=== PATIENT | female | born 1975 | race Hispanic/Latino ===

== ENCOUNTER 2017-05-08 22:14 | Emergency (ER) | payer OTHER ==
[2017-05-08 22:15] VITALS: BMI 24.1
[2017-05-08 22:35] VITALS: RESP 18; TEMP 98.4; O2SAT 99
[2017-05-08] MEDS ORDERED: DiphenhydrAMINE 50 mg/ml Inj IVP STA (23:06)
[2017-05-09 00:22] LABS: ADD MANUAL DIFF? NO
[2017-05-09 00:26] LABS: URINE BILIRUBIN NEGATIVE (NEGATIVE); URINE BLOOD NEGATIVE (NEGATIVE); URINE GLUCOSE (UA) NEGATIVE (NEGATIVE); URINE KETONE NEGATIVE (NEGATIVE); URINE LEUKOCYTE ESTERASE NEGATIVE Leu/uL (NEGATIVE); URINE PROTEIN NEGATIVE mg/dL (<30 mg/dL); URINE UROBILINOGEN 0.2 E.U./dL (<1 E.U./dL)
[2017-05-09 00:32] LABS: URINE APPEARANCE CLEAR (CLEAR); URINE COLOR YELLOW (YELLOW)
[2017-05-09 00:34] LABS: BASO # 0.03 K/mm3 (0.0-2.0); BASO % 0.5 % (0.0-3.0); EOS # 0.1 (0.0-0.7); GRAN # 3.95 (1.4-6.5); GRAN % 65.5 % (50.0-68.0); HEMATOCRIT 37.6 % (36.0-48.0); LYMPH # 1.5 (1.2-3.4); LYMPH % 24.9 % (22.0-35.0); MEAN CELL VOLUME 80.7 fL (80.0-105.0); MEAN CORPUSCULAR HEMOGLOBIN 26.6 pg (25.0-35.0); MEAN PLATELET VOLUME 10.4 fl (7.0-11.0); MONO # 0.4 (0.1-0.6); MONO % 7.1 % (1.0-6.0); PLATELET COUNT 346 10^3/uL (120.0-450.0); RED CELL DISTRIBUTION WIDTH 14.8 % (11.5-14.5)
[2017-05-09 00:50] LABS: ALB/GLOB RATIO 1.3 (1.1-1.8); AST/SGOT 29 U/L (15-39); BILIRUBIN,TOTAL 1.1 mg/dL (0.2-1.3); BLOOD UREA NITROGEN 12 mg/dL (7-21); CALCIUM 9.9 mg/dL (8.4-10.5); CARBON DIOXIDE 23 mmol/L (21-33); GFR AFRICAN-AMERICAN > 60; GLUCOSE,RANDOM 89 mg/dL (70-110); TOTAL PROTEIN 7.7 g/dL (5.8-8.3)
[2017-05-09 00:54] LABS: ALKALINE PHOSPHATASE 111 U/L (38-133); ALT/SGPT 23 U/L (7-56); CHLORIDE 104 mmol/L (98-107); POTASSIUM 3.9 mmol/L (3.6-5.0); SODIUM 138 mmol/L (132-148)
--- NOTE | 2017-05-09 02:04 | ED PDOC ---
Arrival/HPI - General Chief Complaint: Dizziness/Lightheaded Time Seen by Provider: 05/08/17 22:45 Historian: Patient - History of Present Illness Narrative History of Present Illness (Text): 05/08/17 22:59 This 41 yo female with pmh vertigo, PINO, presents to this ED c/o headache, dizziness x 1 day. Patient stated she had similar symptoms in the past. Patient denies fever, sob, cp, neck pain, neck stiffness, abdominal pain, urinary symptoms, n/v, or abnormal gait. Time/Duration: Other (see HPI) Context: Home Past Medical History - Provider Review Nursing Documentation Reviewed: Yes - Tetanus Immunization Tetanus Immunization: Unknown - Neurological Other/Comment: Marin's Palsy - Endocrine/Metabolic Hx Hypothyroidism: Yes - Psychiatric Hx Anxiety: Yes Hx Substance Use: No - Surgical History Hx Tonsillectomy: Yes - Anesthesia Hx Anesthesia: Yes Hx Anesthesia Reactions: No Hx Malignant Hyperthermia: No - Suicidal Assessment Feels Threatened In Home Enviroment: No Family/Social History - Physician Review Nursing Documentation Reviewed: Yes Family/Social History: No Known Family HX Smoking Status: Never Smoked Hx Alcohol Use: Yes Hx Substance Use: No Hx Substance Use Treatment: No Allergies/Home Meds Allergies/Adverse Reactions: Allergies iodine Allergy (Verified 05/08/17 22:36) RASH meclizine Allergy (Verified 05/08/17 22:36) SWELLING Review of Systems - Review of Systems Constitutional: Normal. absent: Fatigue, Weight Change, Fevers Eyes: Normal ENT: Normal. absent: Sore Throat, Rhinorrhea Respiratory: Normal. absent: SOB, Cough, Sputum Cardiovascular: Normal. absent: Chest Pain, Palpitations Gastrointestinal: Nausea. absent: Abdominal Pain, Constipation, Diarrhea, Vomiting Genitourinary Female: Normal. absent: Dysuria, Frequency, Hematuria, Vaginal Bleeding, Vaginal Discharge Musculoskeletal: Normal. absent: Arthralgias, Back Pain, Neck Pain, Joint Swelling, Myalgias Skin: Normal. absent: Rash Neurological: Headache, Dizziness. absent: Focal Weakness, Gait Changes, Speech Changes, Facial Droop, Disequilibrium, Seizure Endocrine: Normal Hemo/Lymphatic: Normal Psychiatric: Normal Physical Exam Vital Signs Temp Pulse Resp BP Pulse Ox 05/09/17 02:15 98.4 F 75 18 126/76 99 05/09/17 00:15 90 18 126/77 98 05/08/17 22:31 98.4 F 124 H 18 128/74 99 Temperature: Afebrile Blood Pressure: Normal Pulse: Tachycardic Respiratory Rate: Normal Appearance: Positive for: Well-Appearing, Non-Toxic, Comfortable Pain Distress: None Mental Status: Positive for: Alert and Oriented X 3 - Systems Exam Head: Present: Atraumatic, Normocephalic Pupils: Present: PERRL Extroacular Muscles: Present: EOMI Conjunctiva: Present: Normal Mouth: Present: Moist Mucous Membranes Neck: Present: Normal Range of Motion, Trachea Midline. No: Meningeal Signs, MIDLINE TENDERNESS, Paraspinal Tenderness, Lymphadenopathy Respiratory/Chest: Present: Clear to Auscultation, Good Air Exchange. No: Respiratory Distress, Accessory Muscle Use, Wheezes, Retracting, Rhonchi, Tachypneic Cardiovascular: Present: Regular Rate and Rhythm, Normal S1, S2. No: Murmurs Abdomen: Present: Normal Bowel Sounds. No: Tenderness, Distention, Peritoneal Signs, Rebound, Guarding Back: Present: Normal Inspection. No: CVA Tenderness, Midline Tenderness, Paraspinal Tenderness Upper Extremity: Present: Normal Inspection, Normal ROM, NORMAL PULSES, Neurovascularly Intact, Capillary Refill < 2s. No: Cyanosis, Edema Lower Extremity: Present: Normal Inspection, Normal ROM, Neurovascularly Intact , Capillary Refill < 2 s. No: Edema, CALF TENDERNESS Neurological: Present: GCS=15, CN II-XII Intact, Speech Normal, Motor Func Grossly Intact, Normal Sensory Function, Normal Cerebellar Funct, Gait Normal, Memory Normal, Other (No neuro focal deficts) Skin: Present: Warm, Dry, Normal Color. No: Rashes Psychiatric: Present: Alert, Oriented x 3 Medical Decision Making ED Course and Treatment: 05/09/17 02:00 Re-evaluation. Patient feels better. Discussed results and plan with patient who expresses understanding. All questions answered and there is agreement with the plan to discharge home with instructions. Patient stable for discharge. Return if symptoms persist or worsen. Patient remained stable during the course of ED visit. Patient symptoms has improved. Patient appears non-toxic. Patient has a normal gait, speak in full sentence. Patient wishes to be discharged home. Re-evaluation Time: 02:00 Reassessment Condition: Re-examined, Improved - Lab Interpretations Lab Results: 05/08/17 23:50 05/08/17 23:50 Lab Results 05/08/17 23:50: Sodium 138, Potassium 3.9, Chloride 104, Carbon Dioxide 23, Anion Gap 15, BUN 12, Creatinine 0.9, Est GFR ( Amer) > 60, Est GFR (Non- Af Amer) > 60, Random Glucose 89, Calcium 9.9, Total Bilirubin 1.1, AST 29, ALT 23, Alkaline Phosphatase 111, Total Protein 7.7, Albumin 4.3, Globulin 3.4, Albumin/Globulin Ratio 1.3 05/08/17 23:50: WBC 6.0, RBC 4.66, Hgb 12.4, Hct 37.6, MCV 80.7, MCH 26.6, MCHC 33.0, RDW 14.8 H, Plt Count 346, MPV 10.4, Gran % 65.5, Lymph % (Auto) 24.9, [place] % (Auto) 7.1 H, Eos % (Auto) 2.0, Baso % (Auto) 0.5, Gran # 3.95, Lymph # 1.5, [place] # 0.4, Eos # 0.1, Baso # 0.03 05/08/17 23:25: Urine Color Yellow, Urine Appearance Clear, Urine pH 8.0, Ur Specific [place] 1.010, Urine Protein Negative, Urine Glucose (UA) Negative, Urine Ketones Negative, Urine Blood Negative, Urine Nitrate Negative, Urine Bilirubin Negative, Urine Urobilinogen 0.2, Ur Leukocyte Esterase Negative, Urine HCG, Qual Negative I have reviewed the lab results: Yes Interpretation: No clinic. lab abnormalty - RAD Interpretation Narrative RAD Interpretations (Text): 05/11/17 00:01 Accession No. : [id number] Patient Name / ID : ADRIANNE CORNELIUS I / [id number] Exam Date : 05/09/2017 00:55:34 ( Approved ) Study Comment : Sex / Age : F / 41Y Creator : Rona Newton V. Dictator : Rona Newton V. Dry Clipper Tender : Staff Nuclear Weapons Officer : Rona Newton V. Approver2 : Report Date : 05/09/2017 08:20:16 My Comment : PROCEDURE: CT HEAD WITHOUT CONTRAST. HISTORY: PINO COMPARISON: None available. TECHNIQUE: Axial computed tomography images were obtained through the head/brain without intravenous contrast. Radiation dose: Total exam DLP = 688 mGy-cm. This CT exam was performed using one or more of the following dose reduction techniques: Automated exposure control, adjustment of the mA and/or kV according to patient size, and/or use of iterative reconstruction technique. FINDINGS: HEMORRHAGE: No intracranial hemorrhage. BRAIN: No mass effect or edema. No atrophy or chronic microvascular ischemic changes. VENTRICLES: Unremarkable. No hydrocephalus. CALVARIUM: Unremarkable. PARANASAL SINUSES: Unremarkable as visualized. No significant inflammatory changes. MASTOID AIR CELLS: Unremarkable as visualized. No inflammatory changes. OTHER FINDINGS: Sub cm high right parietal superficial scalp subcutaneous soft tissue nodule - sebaceous cyst is a consideration. Directed physical exam here advised. Subjacent calvarium intact IMPRESSION: No intracranial pathology noted. Probable sebaceous cyst high right parietal scalp Radiology Orders: 05/08/17 23:03 HEAD W/O CONTRAST [CT] Stat - Medication Orders Current Medication Orders: Discontinued Medications Diphenhydramine HCl (Benadryl) 50 mg IVP STAT STA Stop: 05/08/17 23:07 Last Admin: 05/08/17 23:55 Dose: 50 mg Metoclopramide HCl 10 mg/ (Sodium Chloride) 52 mls @ 200 mls/hr IV STAT STA Stop: 05/08/17 23:18 Last Admin: 05/08/17 23:56 Dose: 200 mls/hr Ketorolac Tromethamine (Toradol) 30 mg IVP STAT STA Stop: 05/08/17 23:04 Last Admin: 05/08/17 23:56 Dose: 30 mg Metoclopramide HCl (Reglan) Confirm Administered Dose 10 mg .ROUTE .STK-MED ONE Stop: 05/08/17 23:35 Last Admin: 05/08/17 23:57 Dose: Disposition/Present on Arrival - Present on Arrival Any Indicators Present on Arrival: No History of DVT/PE: No History of Uncontrolled Diabetes: No Urinary Catheter: No History of Decub. Ulcer: No History Surgical Site Infection Following: None - Disposition Have Diagnosis and Disposition been Completed?: Yes Diagnosis: Headache, Dizziness Disposition: HOME/ ROUTINE Disposition Time: 02:00 Patient Plan: Discharge Condition: GOOD Discharge Instructions (ExitCare): General Headache (ED) Additional Instructions: Call Dr. Bragg office for follow up visit in 1-2 days. Take medication as instruction. Return to emergency if symptoms worsen. Prescriptions: Acetaminophen/Butalbital/Caf [Fioricet] 1 tab PO Q4H PRN #12 tab PRN Reason: Headache Ibuprofen [Motrin] 600 mg PO Q8 PRN #20 tab PRN Reason: Pain, Severe (8-10) Referrals: Kaylah Nur MD [Primary Care Provider] - Follow up with primary Jose Bragg MD [Staff Provider] - Follow up with primary Forms: WORK NOTE
[2017-05-09 02:51] VITALS: BP 126/76; PULSE 75
--- NOTE | 2017-05-09 08:21 | CT ---
PROCEDURE: CT HEAD WITHOUT CONTRAST. HISTORY: PINO COMPARISON: None available. TECHNIQUE: Axial computed tomography images were obtained through the head/brain without intravenous contrast. Radiation dose: Total exam DLP = 688 mGy-cm. This CT exam was performed using one or more of the following dose reduction techniques: Automated exposure control, adjustment of the mA and/or kV according to patient size, and/or use of iterative reconstruction technique. FINDINGS: HEMORRHAGE: No intracranial hemorrhage. BRAIN: No mass effect or edema. No atrophy or chronic microvascular ischemic changes. VENTRICLES: Unremarkable. No hydrocephalus. CALVARIUM: Unremarkable. PARANASAL SINUSES: Unremarkable as visualized. No significant inflammatory changes. MASTOID AIR CELLS: Unremarkable as visualized. No inflammatory changes. OTHER FINDINGS: Sub cm high right parietal superficial scalp subcutaneous soft tissue nodule -sebaceous cyst is a consideration. Directed physical exam here advised. Subjacent calvarium intact IMPRESSION: No intracranial pathology noted. Probable sebaceous cyst high right parietal scalp
--- NOTE | 2017-05-09 16:06 | CARD ---
APPROVED REPORT EKG Measurement Heart [id number] <Conclusion> Normal sinus rhythm Septal infarct, age undetermined Abnormal ECG
== END 2017-05-09 02:25 | disposition home or self-care (01) ==
LOC: ED 22:14
DX: R51 Headache (principal); R42 Dizziness and giddiness
CPT/HCPCS: 70450; 80053; 81003; 84703; 85025; 93005; 96374; 96375; 99285; J1200; J1885; J2765